=== PATIENT | male | born 1985 | race Two or more races ===

== ENCOUNTER 2025-03-12 20:00 | Emergency (ER) | payer BC ==
[~2025-03-12] VITALS: Ht 180.3 cm; Wt 89.8 kg
[2025-03-12 22:11] LABS: BASO % 0.3 % (0.1-1.2); EOS # 0.00 (0.04-0.54); EOS % 0.0 % (0.7-7.0); LYMPH # 1.98 (1.18-3.74); LYMPH % 16.3 % (19.3-53.1); MEAN PLATELET VOLUME 11.30 fl (9.4-12.4); MONO # 0.91 (0.24-0.82); MONO % 7.5 % (4.7-12.5); NEUT # 9.18 (1.56-6.13); NEUT % 75.6 % (34.0-71.1); RED CELL DISTRIBUTION WIDTH 11.9 % (11.6-14.4)
[2025-03-12 22:34] LABS: BUN CREA RATIO 16.0 (7.0-25.0); CREATININE SERUM 0.91 mg/dL (0.70-1.30); GFR 92.75; OSMOLALITY SERUM 283.0 MOSM/KG (275-295)
[2025-03-12 22:37] LABS: GLUCOSE FASTING 283.0 mg/dL (65-100)
[2025-03-12 23:14] LABS: URINE APPEARANCE Cloudy; URINE BILIRRUBIN Negative (NEGATIVE); URINE BLOOD Large; URINE COLOR Dark Yellow; URINE LEUKOCYTE Moderate; URINE NITRATE Positive; URINE PROTEIN 30 (NEGATIVE); URINE UROBILINOGEN 1.0 E.U./dl
[2025-03-12 23:17] LABS: URINE BACTERIA 9097.9 uL (0.0-1933); URINE EPITHELIAL CELLS 6.1 uL (0.0-38.8); URINE RBC 152.8 uL (0.0-20.8); URINE WBC 1772.4 uL (0.0-23.2)
[2025-03-12] MEDS ORDERED: LEVOFLOXACIN250 MG PO (23:56)
[2025-03-13] MEDS ORDERED: PYRIDIUM DS200 MG PO (00:03)
[2025-03-13 00:06] LABS: URINE CAST 1.02 uL (0.0-1.40); URINE GLUCOSE >=1000 MG/DL (NEGATIVE); URINE KETONE 40 (NEGATIVE); URINE MUCUS SCANT; URINE YEAST FEW /hpf
[2025-03-13] MEDS ORDERED: LEVOFLOXACIN750 MG PO (00:13)
[2025-03-13] MEDS ORDERED: CEFTRIAXONE SODIUM 1,000 MG VIAL IM ONE (00:15)
== END 2025-03-13 00:41 | disposition home or self-care (01) ==
LOC: ER 21:41
PROVIDERS: General Practice
DX: R30.0 Dysuria (principal); N39.0 Urinary tract infection, site not specified